=== PATIENT | male | born 1960 | race Caucasian/White ===

== ENCOUNTER → 2024-05-27 23:59 | Outpatient (BNV) | payer OTHER, SELFPAY | PROVIDERS: PCP Internal Medicine; Visit Provider Internal Medicine Cardiovascular Disease | DX: I20.0 Unstable angina (principal) | CPT/HCPCS: 93458; 99152 ==

== ENCOUNTER 2024-06-24 09:14 | Outpatient (AMB) | payer OTHER, SELFPAY ==
[2024-06-24 09:31] VITALS: BP 128/90; PULSE 74; BMI 30.2
--- NOTE | 2024-06-24 09:31 | A.OFFVIS_ITS ---
Vital Signs 06/24/24 09:31 Height 5 ft 5 in Weight 181 lb 3.52 oz BMI 30.2 BP 128/90 H Blood Pressure Location Lt brachial Position Sitting Pulse 74 Pulse Source Pulse Oximeter Intake Visit Reasons: f/up cath 05/27 Allergies No Known Allergies Allergy (Verified 06/24/24 09:35) Medication List - Last Reconciled 06/24/24 by Alisa Villarreal NP-C amlodipine 2.5 mg PO DAILY enoxaparin 120 mg subcut DAILY famotidine 40 mg PO BID fluticasone propionate 250 mcg/actuation 2 inhalations inhalation BID levothyroxine 175 mcg PO DAILY loratadine 10 mg PO DAILY HPI HPI f/up cath 05/27: Details: Lux is a 64-year-old male with past medical history of hypertension, chronic kidney disease, chronic ITP, autoimmune hemolytic anemia, 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 He did have EKG abnormalities with concern for ACS. He underwent cardiac catheterization showing normal coronary arteries. Recommendations were for risk factor modification. He now presents for follow-up. Today he states he has been doing generally well since his hospital discharge. He will still notice pain in his left chest region that mostly occurs at night and is worse with deep inspiration. He is able to pinpoint the area that hurts however it is nontender to touch. He denies any concerning chest discomfort in the daytime or during physical activity. He has not had any discomfort as bad as it was on the day he went to the hospital. He has no shortness of breath, PND, orthopnea or edema. No lightheadedness, presyncope, syncope, falls. He describes a history of sleep apnea but does not use his CPAP mask as he does not like it. Denies daytime sleepiness or fatigue. He does notice heart palpitations at times where it feels like his heart is going fast for a few seconds then goes back to normal. This can happen a few times a month. 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 He is taking his meds as directed. Has no bleeding issues. He uses his Lovenox faithfully. His right radial catheterization site is feeling good. [facility] Medical History (Updated 06/24/24 @ 11:46 by REBECCA RizviC) Autoimmune hemolytic anemia with immune thrombocytopenia Sleep apnea CKD (chronic kidney disease) Chronic ITP (idiopathic thrombocytopenia) Social History Alcohol intake: current Alcohol intake frequency: holidays/special occasions only Review of Systems Const All systems reviewed & are unremarkable except as noted in HPI and below ENT Denies dizziness Card Details: pain below left breast with deep inspiration Denies chest pain, Denies chest pain at rest, Denies chest pain with activity, Denies rapid heart rate, Denies pedal edema, Denies edema, Denies leg edema, Denies lightheadedness, Denies palpitations, Denies dyspnea, Denies dyspnea on exertion and Denies orthopnea Resp Denies cough, Denies dyspnea and Denies dyspnea on exertion GI Denies hematochezia and Denies change in stool character Musc Denies abnormal gait, Denies limited range of motion, Denies muscle cramps, Denies muscle weakness, Denies numbness, Denies radiating pain into limb, Denies stiffness and Denies tingling Neuro Denies abnormal gait, Denies dizziness, Denies numbness and Denies tingling Endo Denies palpitations Physical Exam Vital Signs: Last Vital Signs Pulse 74 06/24/24 09:31 BP 128/90 H 06/24/24 09:31 BMI result Body Mass Index 30.2 Const General: cooperative, healthy appearing, comfortable and no acute distress Orientation/consciousness: patient oriented x3 Neck Neck: Yes normal visual inspection and Yes no JVD Resp Effort & Inspection: normal respiratory effort Auscultation: clear to auscultation bilaterally, no rales, no rhonchi and no wheezes Cardio Jugular venous distension: no JVD Rate: regular rate Rhythm: regular rhythm Heart sounds: S1 normal heart sound present, S2 normal heart sound present, no murmurs and no rubs Neuro General: patient oriented x3 Extrem General: Yes normal to inspection, No no pedal edema and No calf tenderness Psych Appearance: grossly normal Mental Status: mental status grossly normal Speech and movement: Normal speech and movement present Office Procedures EKG Details: Today, read by me, normal sinus rhythm, left bundle branch block, rate 68, QTC 467 milliseconds [id number], Complete Assessment & Plan Assessment & Plan (1) Precordial chest pain: Code(s): R07.2 - Precordial pain Category: Medical Plan: Report of left-sided chest discomfort that woke him from sleep recently. He then went to his PCP office and his EKG had ST and T-wave abnormalities anteriorly. He was sent to [facility] for evaluation. One note indicates the echo showed apical akinesis. I reviewed the actual echo report which says mildly reduced EF and no regional wall motion abnormalities. He did undergo a cardiac catheterization which showed no significant CAD to explain the EKG changes. He was seen by Cardiology who recommended risk factor modific ation. Today he reports that he will get chest discomfort at times, mostly at night and it hurts with deep inspiration. He is able to pinpoint the area below his left breast where the discomfort occurs but states it is nontender. He denies any concern being discomfort in this region with physical activity or in the daytime. This seems like it could be chest wall discomfort verses pleuritic type pain. He has had no discomfort as bad as it was on the day that he went to the ER. Reviewed all the above with him. His echocardiogram did show a mildly reduced EF however the quality of the images were limited. At this time will recheck a limited echo to reassess EF and check for wall motion abnormality. Review cardiac risk factor modification. Blood pressure controlled at this time. No lipid profile for my review. Will forward this note to his PCP. Signs and symptoms of true angina reviewed. Cardiology follow-up in 3 months (post echo and Holter), sooner if needed. (2) S/P cardiac cath: Comment: 05/27/2024 normal coronary arteries Code(s): Z98.890 - Other specified postprocedural states Category: Medical Plan: Right radial catheterization site well healed (3) Abnormal EKG: Code(s): R94.31 - Abnormal electrocardiogram [ECG] [EKG] Category: Medical Plan: EKGs from [facility] [place] [place] reviewed. They do show normal sinus rhythm with anterior septal Q-wave, ST and T-wave abnormality anterior leads concerning for ischemia. Hospital discharge note also does mention EKG finding of left bundle branch block. It is possible the left bundle branch block is intermittent as it was not on his initial EKGs. EKG done today in the office is showing normal sinus rhythm with left bundle branch block, rate 68. Rechecking echo as above. (4) Abnormal finding on echocardiogram: Code(s): R93.1 - Abnormal findings on diagnostic imaging of heart and coronary circulation Category: Medical Plan: As above (5) Palpitation: Code(s): R00.2 - Palpitations Category: Medical Plan: Patient does report intermittent heart palpitations where it feels like his heart is going fast for few seconds and then goes back to normal. This could be brief atrial tach, sinus tach and less likely brief PAF. He does have a history of sleep apnea and does not wear his CPAP mask. Echocardiogram recently done did show normal left atrial size. Check a Holter monitor to assess for any concerning arrhythmia. (6) DVT (deep venous thrombosis): Code(s): I82.409 - Acute embolism and thrombosis of unspecified deep veins of unspecified lower extremity Category: Medical Plan: History of DVT/PE. He is on Lovenox. Follows with in [place]. (7) Hospital discharge follow-up: Code(s): Z09 - Encounter for follow-up examination after completed treatment for conditions other than malignant neoplasm Category: Medical Plan: As above (8) Sleep apnea: Code(s): G47.30 - Sleep apnea, unspecified Category: Medical Plan: As above (9) Hypertension: Code(s): I10 - Essential (primary) hypertension Category: Medical Plan: As above Orders: Orders CA Echo Limited Today R07.2 - Precordial pain, R93.1 - Abnormal findings on diagnostic imaging of heart and coronary circulation ECG 3 day holter monitor Today R00.2 - Palpitations Coding Level of Care Code Est Pt Level 4 (33731) Diagnoses Precordial chest pain R07.2 S/P cardiac cath Z98.890 Abnormal EKG R94.31 Abnormal finding on echocardiogram R93.1 Palpitation R00.2 DVT (deep venous thrombosis) I82.409 Hospital discharge follow-up Z09 Sleep apnea G47.30 Hypertension I10 CPT Codes EKG - CPT: 78468-[id number], Complete ([id number]) Time Spent (min) 36
== END 2024-06-24 09:49 | disposition home or self-care (01) ==
PROVIDERS: PCP Internal Medicine; Visit Provider Nurse Practitioner Family
DX: R07.2 Precordial pain (principal); Z98.890 Other specified postprocedural states; R94.31 Abnormal electrocardiogram [ECG] [EKG]; R93.1 Abnormal findings on diagnostic imaging of heart and coronary circulation; R00.2 Palpitations; I82.409 Acute embolism and thrombosis of unspecified deep veins of unspecified lower extremity; Z09 Encounter for follow-up examination after completed treatment for conditions other than malignant neoplasm; G47.30 Sleep apnea, unspecified; I10 Essential (primary) hypertension
CPT/HCPCS: 93010; 99214

== ENCOUNTER → 2024-06-24 09:14 | Outpatient (BNVA) | payer OTHER, SELFPAY | PROVIDERS: PCP Internal Medicine; Visit Provider Nurse Practitioner Family | DX: R07.2 Precordial pain (principal); R94.31 Abnormal electrocardiogram [ECG] [EKG]; R93.1 Abnormal findings on diagnostic imaging of heart and coronary circulation; R00.2 Palpitations; G47.30 Sleep apnea, unspecified; I10 Essential (primary) hypertension; Z86.711 Personal history of pulmonary embolism; Z86.718 Personal history of other venous thrombosis and embolism; Z79.01 Long term (current) use of anticoagulants | CPT/HCPCS: 93005 ==

== ENCOUNTER → 2024-07-22 07:54 | Outpatient (REF) | payer OTHER, SELFPAY ==
--- NOTE | 2024-07-22 08:00 | HM_ITS ---
* Total monitoring time 3 days. * Underlying rhythm is sinus with an average rate of 85/Min. * No significant supraventricular or ventricular ectopy. * No significant pauses or AV blocks. * No patient markers or diary events. MTDD
--- NOTE | 2024-07-22 08:00 | CA_ITS ---
Transthoracic Echocardiogram Patient (Last, First, Middle): Lux Lamar, Gender: Male Date of : 1960 Age: 64 Procedure Date: 07/22/2024 Procedure Type: Transthoracic Echocardiogram Location: OP Height: 165.1 cm Weight: 81.65 kg BSA: 1.89 m2 Heart Rate: 62 bpm BP: 145 / 90 mmHg Supervisor Order Takers: ATRA Referring MD: Alisa Villarreal CONTROL PANEL OPERATORCindi Ethnology Teacher: James Wick MD Symptoms: R93.1 - Abnormal findings on diagnostic imaging of heart and coronary ci... Study Quality: Adequate w/Contrast. Limited by order ECG Rhythm: Sinus Conclusions: - Mildly reduced LV ejection fraction 45-50% with impaired relaxation filling pattern Findings Procedure Information Contrast agent, definity, is being given per protocol without apparent complications. Left Ventricle Normal left ventricular cavity size. There is mildly increased left ventricular wall thickness. The left ventricular systolic function is mildly decreased. The visually estimated ejection fraction is between 45-50%. Spectral Doppler is indicative of an impaired relaxation filling pattern. E/E prime ratio is between 8 and 15 consistent with indeterminate filling pressures. Prior Study Comparison No prior study available for comparison. Measurements 2D Linear Measurements IVSd: 1.27 0.6-0.9/0.6-1.0 cm LVIDd: 4.05 3.9-5.3/4.2-5.9 cm LVIDd Index: 2.14 2.4-3.2/2.2-3.1 cm/m2 LVIDs: 3.15 2.0-3.6 cm LVPWd: 1.21 0.7-1.1 cm LA Diam: 3.30 2.7-3.8/3.0-4.0 cm LAIDs Index: 1.75 1.5-2.3 cm/m2 LV Mass: 220.50 67-162/88-224 g LV Mass Index: 116.66 43-95/49-115 g/m2 LVOT Diam: 2.10 3.0+(-)1.3 cm 2D Systolic Function EF 4C: 40.20 >55% EF 2C: 52.90 >55% EF BiP: 47.50 >55% Mitral Valve MV Pk E: 0.75 MV PK A: 0.87 MV Decel Time: 224.00 E/A: 0.90 E'Lateral: 7.94 E'Medial: 5.33 E/E' Med: 14.00 E/E' Lat: 9.40 PHT: 66.00 MVA PHT: 3.33 Decel [place]: 3.33 LVOT LVOT Pk Ruperto: 0.83 LVOT Mn Ruperto: 0.61 LVOT VTI: 0.19 LVOT Pk Grad: 3.00 LVOT Mn Grad: 2.00 LVOT Diam: 2.10 LVOT Area: 3.46 Diastolic Function MV Pk E: 0.75 MV Pk A: 0.87 E/A: 0.90 E'Medial: 5.33 E/E' Med: 14.00 E' Laterial: 7.94 E/E' Lat: 9.40 Updated in Other Vendor System with Status of Final James Wick MD electronically signed on 07/23/2024 9:31:17 AM with status of Final
== END ==
LOC: HO.CARD 07:54
PROVIDERS: Visit Provider Nurse Practitioner Family
DX: R07.2 Precordial pain (principal); R00.2 Palpitations; R93.1 Abnormal findings on diagnostic imaging of heart and coronary circulation
CPT/HCPCS: 93242; 93308; Q9957

== ENCOUNTER → 2024-07-22 08:00 | Outpatient (BNV) | payer OTHER, SELFPAY | PROVIDERS: Visit Provider Internal Medicine Cardiovascular Disease | DX: R00.0 Tachycardia, unspecified (principal) | CPT/HCPCS: 93244; 93308; 93321; 93325 ==